=== PATIENT | male | born 1970 | race Caucasian/White ===

== ENCOUNTER 2018-02-20 06:23 | Inpatient (IN) | payer OTHER ==
--- NOTE | 2018-02-20 06:40 | EDM.PDOC ---
<Contreras Reed J - Last Filed: 02/20/18 06:38> ED HPI GENERAL MEDICAL PROBLEM - General Chief Complaint: Abdominal Pain Stated Complaint: PAIN ALL OVER Time Seen by Provider: 02/20/18 06:38 - History of Present Illness INITIAL COMMENTS - FREE TEXT/NARRATIVE: HISTORY AND PHYSICAL: History of present illness: Patient's 47-year-old white male presents with concern of lower abdominal pain this is suprapubic and right lower quadrant worse this a.m. that started last night. He denies fever chills nausea vomiting diarrhea or urinary symptoms Review of systems: As per history of present illness and below otherwise all systems reviewed and negative. Past medical history: As per history of present illness and as reviewed below otherwise noncontributory. Surgical history: As per history of present illness and as reviewed below otherwise noncontributory. Social history: No reported history of drug or alcohol abuse. Family history: As per history of present illness and as reviewed below otherwise noncontributory. Physical exam: HEENT: Atraumatic, normocephalic, pupils reactive, negative for conjunctival pallor or scleral icterus, mucous membranes moist, throat clear, neck supple, nontender, trachea midline. Lungs: Clear to auscultation, breath sounds equal bilaterally, chest nontender. Heart: S1S2, regular, negative for clicks, rubs, or JVD. Abdomen: Soft, nondistended, tender to right lower quadrant equivocal rebound mild guarding Negative for masses or hepatosplenomegaly. Negative for costovertebral tenderness. Pelvis: Stable nontender. Genitourinary: Deferred. Rectal: Deferred. Extremities: Atraumatic, negative for cords or calf pain. Neurovascular unremarkable. Neuro: Awake, alert, oriented. Cranial nerves II through XII unremarkable. Cerebellum unremarkable. Motor and sensory unremarkable throughout. Exam nonfocal. Diagnostics: CBC CMP UA CT abdomen and pelvis Therapeutics: Saline 1 L bolus Impression: #1 acute lower abdominal pain Definitive disposition and diagnosis as appropriate pending reevaluation and review of above. ED ROS GENERAL - Review of Systems Review Of Systems: ROS reveals no pertinent complaints other than HPI. ED EXAM, GENERAL - Physical Exam Exam: See Below (See dictation) Course - Vital Signs Last Recorded V/S: Last Vital Signs Temp 98.2 F 02/20/18 06:33 Pulse 119 H 02/20/18 06:33 Resp 12 02/20/18 06:33 BP 144/98 H 02/20/18 06:33 Pulse Ox 95 02/20/18 06:33 - Orders/Labs/Meds Orders: Active Orders 24 hr Category Date Time Status Abdomen Pelvis wo Cont [CT] Stat Exams 02/20/18 06:34 Taken UA W/MICROSCOPIC [URIN] Stat Lab 02/20/18 06:30 Ordered Levofloxacin/Dextrose 5%-Water [Levaquin in D5W 500 MG/ Med 02/20/18 07:41 Ordered 100 ML] 500 mg Premix Bag 1 bag IV ONETIME Morphine Med 02/20/18 07:41 Once 2 mg IVPUSH ONETIME ONE Sodium Chloride 0.9% [Normal Saline] 1,000 ml Med 02/20/18 07:45 Ordered IV STAT metroNIDAZOLE/Normal Saline [Flagyl 500 MG in NS 100 ML Med 02/20/18 07:41 Ordered ] 500 mg Premix Bag 1 bag IV ONETIME Medication Orders Levofloxacin/Dextrose 500 mg/ (Premix) 100 mls @ 100 mls/hr IV ONETIME ONE Stop: 02/20/18 08:40 Metronidazole 500 mg/ Premix 100 mls @ 100 mls/hr IV ONETIME ONE Stop: 02/20/18 08:40 Morphine Sulfate (Morphine) 2 mg IVPUSH ONETIME ONE Stop: 02/20/18 07:42 Labs: Laboratory Tests 02/20/18 02/20/18 02/20/18 Range/Units 06:30 06:40 06:40 WBC 18.96 H (4.0-11.0) K/uL RBC 5.18 (4.50-5.90) M/uL Hgb 17.2 H (13.0-17.0) g/dL Hct 48.0 (38.0-50.0) % MCV 92.7 (80.0-98.0) fL MCH 33.2 H (27.0-32.0) pg MCHC 35.8 (31.0-37.0) g/dL RDW Std Deviation 46.6 (28.0-62.0) fl RDW Coeff of Valentin 14 (11.0-15.0) % Plt Count 183 (150-400) K/uL MPV 8.60 (7.40-12.00) fL Neut % (Auto) 80.2 H (48.0-80.0) % Lymph % (Auto) 7.9 L (16.0-40.0) % [place] % (Auto) 11.7 (0.0-15.0) % Eos % (Auto) 0.1 (0.0-7.0) % Baso % (Auto) 0.1 (0.0-1.5) % Neut # (Auto) 15.2 H (1.4-5.7) K/uL Lymph # (Auto) 1.5 (0.6-2.4) K/uL [place] # (Auto) 2.2 H (0.0-0.8) K/uL Eos # (Auto) 0.0 (0.0-0.7) K/uL Baso # (Auto) 0.0 (0.0-0.1) K/uL Nucleated RBC % 0.0 /100WBC Nucleated RBCs # 0 K/uL Sodium 139 (136-148) mmol/L Potassium 3.9 (3.5-5.1) mmol/L Chloride 103 (98-107) mmol/L Carbon Dioxide 21.9 (21.0-32.0) mmol/L BUN 13 (7.0-18.0) mg/dL Creatinine 1.1 (0.8-1.3) mg/dL Est Cr Clr Drug Dosing 98.16 mL/min Estimated GFR (MDRD) > 60.0 ml/min Glucose 139 H (74-106) mg/dL Calcium 9.4 (8.5-10.1) mg/dL Total Bilirubin 1.0 (0.2-1.0) mg/dL AST 53 H (15-37) IU/L ALT 180 H (14-63) IU/L Alkaline Phosphatase 76 (46-116) U/L Total Protein 7.8 (6.4-8.2) g/dL Albumin 3.9 (3.4-5.0) g/dL Globulin 3.9 H (2.0-3.5) g/dL Albumin/Globulin Ratio 1.0 L (1.3-2.8) Urine Color YELLOW Urine Appearance CLEAR Urine pH 6.0 (5.0-8.0) Ur Specific [place] >= 1.030 (1.001-1.035) Urine Protein TRACE (NEGATIVE) mg/dL Urine Glucose (UA) NEGATIVE (NEGATIVE) mg/dL Urine Ketones NEGATIVE (NEGATIVE) mg/dL Urine Occult Blood NEGATIVE (NEGATIVE) Urine Nitrite NEGATIVE (NEGATIVE) Urine Bilirubin NEGATIVE (NEGATIVE) Urine Urobilinogen 0.2 (<2.0) EU/dL Ur Leukocyte Esterase NEGATIVE (NEGATIVE) Urine RBC 0-1 (0-2/HPF) Urine WBC RARE (0-5/HPF) Ur Epithelial Cells FEW (NONE-FEW) Urine Bacteria FEW (NEGATIVE) Urine Mucus LIGHT (NONE-MOD) Meds: Medications Generic Name Dose Route Start Last Admin Trade Name Freq PRN Reason Stop Dose Admin Levofloxacin/Dextrose 500 mg/ 100 mls @ 100 mls/hr 02/20/18 07:41 Premix IV 02/20/18 08:40 ONETIME ONE Metronidazole 500 mg/ Premix 100 mls @ 100 mls/hr 02/20/18 07:41 IV 02/20/18 08:40 ONETIME ONE Morphine Sulfate 2 mg 02/20/18 07:41 Morphine IVPUSH 02/20/18 07:42 ONETIME ONE Discontinued Medications Generic Name Dose Route Start Last Admin Trade Name Freq PRN Reason Stop Dose Admin Ketorolac Tromethamine 30 mg 02/20/18 07:15 02/20/18 07:23 Toradol IVPUSH 02/20/18 07:16 30 mg ONETIME ONE Administration Departure - Departure Disposition: Admitted As Inpatient 65 Clinical Impression: Diverticulitis - Discharge Information Referrals: PCP,None [Primary Care Provider] - Forms: ED Department Discharge - My Orders Last 24 Hours: My Active Orders 02/20/18 07:41 Levofloxacin/Dextrose 5%-Water [Levaquin in D5W 500 MG/100 ML] 500 mg Premix Bag 1 bag IV ONETIME Morphine 2 mg IVPUSH ONETIME ONE metroNIDAZOLE/Normal Saline [Flagyl 500 MG in NS 100 ML] 500 mg Premix Bag 1 bag IV ONETIME 02/20/18 07:45 Sodium Chloride 0.9% [Normal Saline] 1,000 ml IV STAT - Assessment/Plan Last 24 Hours: My Active Orders 02/20/18 07:41 Levofloxacin/Dextrose 5%-Water [Levaquin in D5W 500 MG/100 ML] 500 mg Premix Bag 1 bag IV ONETIME Morphine 2 mg IVPUSH ONETIME ONE metroNIDAZOLE/Normal Saline [Flagyl 500 MG in NS 100 ML] 500 mg Premix Bag 1 bag IV ONETIME 02/20/18 07:45 Sodium Chloride 0.9% [Normal Saline] 1,000 ml IV STAT <Vicente Marcelo - Last Filed: 02/20/18 07:46> ED HPI GENERAL MEDICAL PROBLEM - History of Present Illness INITIAL COMMENTS - FREE TEXT/NARRATIVE: I've seen and examined the patient agree with the above patient has had loose stools routinely HEENT grossly within normal limits Chest clear CV regular Abdomen soft nondis tender in right lower quadrant with rebound rebound he is also tender in the left lower quadrant similar rebound no masses or hepatosplenomegaly negative for costovertebral tenderness Pelvis stable nontender Genitourinary deferred Rectal deferred Extremities atraumatic negative for cords or calf pain neurovascular unremarkable Neuro a and O 3 cranial nerves II through XII grossly intact cerebellum unremarkable motor and sensory unremarkable throughout exam nonfocal Assessment Acute diverticulitis Plan Cipro Flagyl Admission Departure - Departure Time of Disposition: 07:46 Condition: Fair
[2018-02-20] MEDS ORDERED: Ketorolac 30 MG/ML SDV IVPUSH ONE (07:15)
[2018-02-20 07:18] LABS: CHLORIDE,CL 103 mmol/L (98-107); SODIUM,NA 139 mmol/L (136-148)
[2018-02-20] MEDS ORDERED: Morphine 4 MG/ML Syringe IVPUSH ONE (07:41)
[2018-02-20] MEDS ORDERED: metroNIDAZOLE/Normal Saline 500 MG in Premix Bag 1 BAG IV ONE (07:41)
[2018-02-20] MEDS ORDERED: Levofloxacin/Dextrose 5%-Water 500 MG in Premix Bag 1 BAG IV ONE (07:41)
[2018-02-20] MEDS ORDERED: Sodium Chloride 0.9% 1,000 ML IV SCH ×2 (07:45→08:00)
[2018-02-20] MEDS ORDERED: Ciprofloxacin in D5W 400 MG in Premix Bag 1 BAG IV SCH ×2 (08:00)
[2018-02-20] MEDS ORDERED: Ondansetron 4 MG/2 ML SDV IVPUSH PRN (08:20)
--- NOTE | 2018-02-20 08:24 | PCM.HP ---
H&P History of Present Illness - General Date of Service: 02/20/18 Admit Problem/Dx: Admission Diagnosis/Problem Admission Diagnosis/Problem Diverticulitis Source of Information: Patient History Limitations: Reports: No Limitations - History of Present Illness Initial Comments - Free Text/Narative: This 47 year old male, with little significant pmh presented to the ED this morning with 24 hours of severe abdominal pain. He reports all day yesterday he dealt with 5-6/10 cramping, sharp shooting and stabbing pain to midline and RLQ abdominal pain. He reports diarrhea, but no john blood or black tarry stools. He has had a poor appetite and ate only half a brat yesterday and drinking very little. He denies fevers, chills, neck pain, chest pain, SOB, palpitations or urinary troubles. He has never had this pain before. No history of IBD/IBS and no family history of this. No abdominal surgeries. He reports kidney stones and tonsillectomy when he was a child. He reports smoking 2 ppd for many years and he drinks a 12 pack of beer daily. Reports being sober at one time going to AA and going through DTs, never had seizures. Denies recreational drugs. In the ED leuckoytosis of 18,960 with hgb 17.2. Glucose slightly elevated at 139 , AST 53, ALT 180. UA negative. CT abdomen/pelvis revealed acute sigmoid diverticulitis without complication, no john perforation or abscess noted. Severe hepatic steatosis also noted. He was treated with Toradol, Morphone IVFs as well as Ciprofloxacin and Flagyl. He will be admitted inpatient for acute sigmoid diverticulitis. RLQ abd Pain Score (Numeric/FACES): 10 - Related Data Allergies/Adverse Reactions: Allergies Allergy/AdvReac Type Severity Reaction Status Date / Time No Known Allergies Allergy Verified 02/20/18 06:40 Home Medications: Home Meds . [No Known Home Meds] 02/20/18 [History] Past Medical History - Past Health History Medical/Surgical History: Denies Medical/Surgical History Cardiovascular History: Reports: None. Denies: Afib, Blood Clots/VTE/DVT, CAD, High Cholesterol, Hypertension Respiratory History: Reports: None. Denies: COPD, PE, Sleep Apnea Gastrointestinal History: Reports: None. Denies: GERD, GI Bleed, Inflammatory Bowel Disease, Irritable Bowel Syndrome Neurological History: Reports: None. Denies: CVA, TIA Psychiatric History: Reports: Addiction (alcohol) Endocrine/Metabolic History: Reports: Obesity/BMI 30+. Denies: Diabetes, Type II Hematologic History: Reports: None - Infectious Disease History Infectious Disease History: Reports: Chicken Pox - Past Surgical History HEENT Surgical History: Reports: Adenoidectomy, Tonsillectomy Social & Family History - Tobacco Use Smoking Status *Q: Current Every Day Smoker Years of Tobacco use: 25 Packs/Tins Daily: 2 - Caffeine Use Caffeine Use: Reports: Coffee - Alcohol Use Alcohol Use History: Yes Days Per Week of Alcohol Use: 7 Number of Drinks Per Day: 12 Total Drinks Per Week: 84 Alcohol Use Frequency: Daily - Recreational Drug Use Recreational Drug Use: No - Living Situation & Occupation Occupation: Employed H&P Review of Systems - Review of Systems: Review Of Systems: See Below General: Reports: Malaise, Decreased Appetite. Denies: Fever, Chills HEENT: Reports: No Symptoms. Denies: Headaches, Sinus Congestion, Sore Throat Pulmonary: Reports: No Symptoms. Denies: Shortness of Breath, Cough, Sputum Cardiovascular: Reports: No Symptoms. Denies: Chest Pain, Edema Gastrointestinal: Reports: Abdominal Pain (RLQ and lower midline), Diarrhea, Decreased Appetite. Denies: Black Stool, Bloody Stool, Hematemesis, Melena, Nausea, Vomiting Genitourinary: Reports: No Symptoms. Denies: Dysuria, Frequency, Burning, Pain Musculoskeletal: Reports: No Symptoms. Denies: Neck Pain Skin: Reports: No Symptoms Psychiatric: Reports: No Symptoms Neurological: Reports: No Symptoms Hematologic/Lymphatic: Reports: No Symptoms Immunologic: Reports: No Symptoms Exam - Exam Exam: See Below - Vital Signs Vital Signs: Last Vital Signs Temp 98.2 F 02/20/18 06:33 Pulse 110 H 02/20/18 08:07 Resp 18 02/20/18 08:07 BP 144/97 H 02/20/18 08:07 Pulse Ox 95 02/20/18 08:07 Weight: 128 kg - Exam General: Alert, Oriented, Cooperative. No: Mild Distress HEENT: PERRLA, Hearing Intact, Mucosa Moist & [place], Nares Patent, Normal Nasal Septum, Posterior Pharynx Clear, Conjunctiva Clear, EOMI, EACs Clear, TMs Clear Neck: Supple, Trachea Midline, 2 Lungs: Clear to Auscultation, Normal Respiratory Effort Cardiovascular: Regular Rate, Regular Rhythm GI/Abdominal Exam: Soft, No Organomegaly, No Distention, No Mass, Tender (RLQ and low midline.). No: Normal Bowel Sounds (hypoactive) Back Exam: Normal Inspection, Full Range of Motion, NT Extremities: Normal Inspection, Normal Range of Motion, Non-Tender, No Pedal Edema, Normal Capillary Refill Neurological: Cranial Nerves Intact Neuro Extensive - Mental Status: Alert, Oriented x3, Normal Mood/Affect, Normal Cognition Neuro Extensive - Motor, Sensory, Reflexes: CN II-XII Intact, Normal Gait, Normal Reflexes Psychiatric: Alert, Normal Affect, Normal Mood. No: Anxious - Patient Data Lab Results Last 24 hrs: Laboratory Results - last 24 hr 02/20/18 02/20/18 02/20/18 Range/Units 06:30 06:40 06:40 WBC 18.96 H (4.0-11.0) K/uL RBC 5.18 (4.50-5.90) M/uL Hgb 17.2 H (13.0-17.0) g/dL Hct 48.0 (38.0-50.0) % MCV 92.7 (80.0-98.0) fL MCH 33.2 H (27.0-32.0) pg MCHC 35.8 (31.0-37.0) g/dL RDW Std Deviation 46.6 (28.0-62.0) fl RDW Coeff of Valentin 14 (11.0-15.0) % Plt Count 183 (150-400) K/uL MPV 8.60 (7.40-12.00) fL Neut % (Auto) 80.2 H (48.0-80.0) % Lymph % (Auto) 7.9 L (16.0-40.0) % [place] % (Auto) 11.7 (0.0-15.0) % Eos % (Auto) 0.1 (0.0-7.0) % Baso % (Auto) 0.1 (0.0-1.5) % Neut # (Auto) 15.2 H (1.4-5.7) K/uL Lymph # (Auto) 1.5 (0.6-2.4) K/uL [place] # (Auto) 2.2 H (0.0-0.8) K/uL Eos # (Auto) 0.0 (0.0-0.7) K/uL Baso # (Auto) 0.0 (0.0-0.1) K/uL Nucleated RBC % 0.0 /100WBC Nucleated RBCs # 0 K/uL Sodium 139 (136-148) mmol/L Potassium 3.9 (3.5-5.1) mmol/L Chloride 103 (98-107) mmol/L Carbon Dioxide 21.9 (21.0-32.0) mmol/L BUN 13 (7.0-18.0) mg/dL Creatinine 1.1 (0.8-1.3) mg/dL Est Cr Clr Drug Dosing 98.16 mL/min Estimated GFR (MDRD) > 60.0 ml/min Glucose 139 H (74-106) mg/dL Calcium 9.4 (8.5-10.1) mg/dL Total Bilirubin 1.0 (0.2-1.0) mg/dL AST 53 H (15-37) IU/L ALT 180 H (14-63) IU/L Alkaline Phosphatase 76 (46-116) U/L Total Protein 7.8 (6.4-8.2) g/dL Albumin 3.9 (3.4-5.0) g/dL Globulin 3.9 H (2.0-3.5) g/dL Albumin/Globulin Ratio 1.0 L (1.3-2.8) Urine Color YELLOW Urine Appearance CLEAR Urine pH 6.0 (5.0-8.0) Ur Specific [place] >= 1.030 (1.001-1.035) Urine Protein TRACE (NEGATIVE) mg/dL Urine Glucose (UA) NEGATIVE (NEGATIVE) mg/dL Urine Ketones NEGATIVE (NEGATIVE) mg/dL Urine Occult Blood NEGATIVE (NEGATIVE) Urine Nitrite NEGATIVE (NEGATIVE) Urine Bilirubin NEGATIVE (NEGATIVE) Urine Urobilinogen 0.2 (<2.0) EU/dL Ur Leukocyte Esterase NEGATIVE (NEGATIVE) Urine RBC 0-1 (0-2/HPF) Urine WBC RARE (0-5/HPF) Ur Epithelial Cells FEW (NONE-FEW) Urine Bacteria FEW (NEGATIVE) Urine Mucus LIGHT (NONE-MOD) Result Diagrams: 02/20/18 06:40 02/20/18 06:40 *Q Meaningful Use (ADM) - VTE Risk Assess *Q Each Risk Factor Represents 1 Point: Age 41 - 59 years Total Score 1 Point Risk Factors: 1 Each Risk Factor Represents 2 Points: None Total Score 2 Point Risk Factors: 0 Each Risk Factor Represents 3 Points: None Total Score 3 Point Risk Factors: 0 Each Risk Factor Represents 5 Points: None Total Score 5 Point Risk Factors: 0 Venous Thromboembolism Risk Factor Score *Q: 1 - Problem List (1) Sigmoid diverticulitis SNOMED Code(s): 555755056 ICD Code: K57.32 - DVTRCLI OF LG INT W/O PERFORATION OR ABSCESS W/O BLEEDING Status: Acute Current Visit: Yes (2) History of tobacco abuse SNOMED Code(s): 5828911961473, 2716631739265 ICD Code: Z87.891 - PERSONAL HISTORY OF NICOTINE DEPENDENCE Status: Chronic Current Visit: Yes (3) History of alcohol use SNOMED Code(s): 894165474 ICD Code: Z87.898 - PERSONAL HISTORY OF OTHER SPECIFIED CONDITIONS Status: Chronic Current Visit: Yes Problem List Initiated/Reviewed/Updated: Yes Orders Last 24hrs: Active Orders 24 hr Category Date Time Status Admission Status [Patient Status] [ADT] Stat ADT 02/20/18 07:47 Active Intake and Output [RC] QSHIFT Care 02/20/18 08:19 Ordered Oxygen Therapy [RC] PRN Care 02/20/18 08:19 Ordered Up With Assistance [RC] ASDIRECTED Care 02/20/18 08:19 Ordered VTE/DVT Education [RC] PER UNIT ROUTINE Care 02/20/18 08:19 Ordered Vital Signs [RC] Q4H Care 02/20/18 08:19 Ordered Nothing Per Oral Diet [DIET] Diet 02/20/18 Lunch Ordered Abdomen Pelvis wo Cont [CT] Stat Exams 02/20/18 06:34 Taken CBC WITH AUTO DIFF [HEME] AM Lab 02/21/18 05:11 Ordered CBC WITH AUTO DIFF [HEME] AM Lab 02/22/18 05:11 Ordered CBC WITH AUTO DIFF [HEME] AM Lab 02/23/18 05:11 Ordered COMPREHENSIVE METABOLIC PN,CMP [CHEM] AM Lab 02/21/18 05:11 Ordered COMPREHENSIVE METABOLIC PN,CMP [CHEM] AM Lab 02/22/18 05:11 Ordered COMPREHENSIVE METABOLIC PN,CMP [CHEM] AM Lab 02/23/18 05:11 Ordered MAGNESIUM [CHEM] AM Lab 02/21/18 05:11 Ordered MAGNESIUM [CHEM] AM Lab 02/22/18 05:11 Ordered MAGNESIUM [CHEM] AM Lab 02/23/18 05:11 Ordered UA W/MICROSCOPIC [URIN] Stat Lab 02/20/18 06:30 Ordered Ciprofloxacin in D5W [Cipro in D5W 400 MG/200 ML] 400 Med 02/20/18 08:00 Active mg Premix Bag 1 bag IV Q12H Ciprofloxacin in D5W [Cipro in D5W 400 MG/200 ML] 400 Med 02/20/18 20:00 Ordered mg Premix Bag 1 bag IV Q12H Enoxaparin [Lovenox] Med 02/20/18 08:30 Ordered 40 mg SUBCUT Q24H Lactated Ringers [Ringers, Lactated] 1,000 ml Med 02/20/18 08:30 Ordered IV ASDIRECTED Morphine Med 02/20/18 08:19 Ordered 3 mg IVPUSH Q2H PRN Ondansetron [Zofran] Med 02/20/18 08:20 Ordered 4 mg IVPUSH Q4H PRN Sodium Chloride 0.9% [Normal Saline] 1,000 ml Med 02/20/18 07:45 Active IV STAT Sodium Chloride 0.9% [Normal Saline] 1,000 ml Med 02/20/18 08:00 Active IV STAT metroNIDAZOLE/Normal Saline [Flagyl 500 MG in NS 100 ML Med 02/20/18 07:41 Active ] 500 mg Premix Bag 1 bag IV ONETIME metroNIDAZOLE/Normal Saline [Flagyl 500 MG in NS 100 ML Med 02/20/18 14:00 Ordered ] 500 mg Premix Bag 1 bag IV QID Resuscitation Status Routine Resus Stat 02/20/18 08:19 Ordered Medication Orders Enoxaparin Sodium (Lovenox) 40 mg SUBCUT Q24H NEY Metronidazole 500 mg/ Premix 100 mls @ 100 mls/hr IV ONETIME ONE Stop: 02/20/18 08:40 Last Admin: 02/20/18 07:55 Dose: Sodium Chloride (Normal Saline) 1,000 mls @ 125 mls/hr IV STAT NEY Last Admin: 02/20/18 08:03 Dose: 125 mls/hr Sodium Chloride (Normal Saline) 1,000 mls @ 125 mls/hr IV STAT NEY Ciprofloxacin/Dextrose 400 mg/ (Premix) 200 mls @ 200 mls/hr IV Q12H [facility] Last Admin: 02/20/18 08:04 Dose: 200 mls/hr Ciprofloxacin/Dextrose 400 mg/ (Premix) 200 mls @ 200 mls/hr IV Q12H NEY Lactated Ringer's (Ringers, Lactated) 1,000 mls @ 150 mls/hr IV ASDIRECTED [facility] Metronidazole 500 mg/ Premix 100 mls @ 100 mls/hr IV QID NEY Morphine Sulfate (Morphine) 3 mg IVPUSH Q2H PRN PRN Reason: Pain (severe 7-10) Ondansetron HCl (Zofran) 4 mg IVPUSH Q4H PRN PRN Reason: Nausea Assessment/Plan Comment:: This 47 year old male admitted with acute sigmoid diverticulitis 1. Acute sigmoid diverticulitis: NPO, ice chips ok. Analgesia and anti-emetics PRN. IVFs, LR 150. No signs of perforation or abscess. Continue Ciprofloxacin and Flagyl IV. Obtain stool studies due to diarrhea. Will need to arrange outpatient follow up for colonoscopy. Will monitor labwork daily. 2. Alcohol use: Daily use has had withdrawls in past. Will place on CIWAA protocol, patient is aware. Ativan PRN. Thiamine and folic acid supplementation daily. No completely certain is ready to stop drinking, but is willing to cut back. Notified on CT findings of liver steatosis and our recommendation he stop drinking. 3. Tobacco use: Will place Nicotine patch due to 2 ppd smoker. Encouraged that he is not allowed to be smoking during admission. VTE prophylaxis: SCDs and ambulation. Dispo: 2-3 days pending improvement.
[2018-02-20] MEDS ORDERED: Enoxaparin 40 MG/0.4 ML Syringe SUBCUT SCH (08:30)
[2018-02-20] MEDS ORDERED: LORazepam 2 MG/ML SDV IVPUSH PRN (09:08)
[2018-02-20] MEDS ORDERED: Thiamine 200 MG/2 ML MDV IV SCH (09:15)
[2018-02-20] MEDS: Folic Acid 50 MG/10 ML MDV SUBCUT SCH (09:24)
[2018-02-20] MEDS: Nicotine 21 MG/24 Hr Patch TRDERM SCH (09:26)
[2018-02-20] MEDS: Morphine 4 MG/ML Syringe IVPUSH PRN ×4 (10:15→17:40)
[2018-02-20] MEDS: Thiamine 100 MG in Sodium Chloride 0.9% 50 ML IV SCH (10:19)
[2018-02-20] MEDS: metroNIDAZOLE/Normal Saline 500 MG in Premix Bag 1 BAG IV SCH ×4 (11:11→23:57)
[2018-02-20] MEDS ORDERED: metroNIDAZOLE/Normal Saline 500 MG in Premix Bag 1 BAG IV SCH (14:00)
--- NOTE | 2018-02-20 17:11 | CT ---
EXAM DATE: 02/20/18 PATIENT'S AGE: 47 Patient: DINORA HILL Facility: [place], [place] Site . Site : 1970 Study: CT Abdomen/Pelvis W/O [id number]/30/2018 7:02:52 AM Ordering Physician: Doctor Wharton Final Report: INDICATION: Lower abdominal pain TECHNIQUE: CT abdomen and pelvis without contrast. COMPARISON: None. FINDINGS: Lower chest: Unremarkable. Liver: There is diffuse fatty infiltration. No focal lesion. Gallbladder and bile ducts: No stones or inflammation. No biliary dilatation. Pancreas: Unremarkable. No mass or inflammation. Spleen: Normal in size. No masses. Adrenal glands: There is mild enlargement of the adrenal glands. Kidneys: Normal in size. No masses, stones, or hydronephrosis. GI tract: There is mild diverticulosis and acute inflammation amongst diverticuli in the sigmoid colon. No sign of john perforation or abscess. Remainder of the GI tract and appendix are normal. Vasculature: Unremarkable. Lymph nodes: No lymphadenopathy. Abdominal wall/Omentum/Peritoneum: Unremarkable. No sign of mass or infiltration. No free air or significant free fluid. Pelvis: Unremarkable. No pelvic masses. Bones: Unremarkable for age. IMPRESSION: 1. Acute sigmoid diverticulitis without complication is favored over colitis. 2. Severe hepatic steatosis. Please note that all CT scans at this facility use dose modulation, iterative reconstruction, and/or weight-based dosing when appropriate to reduce radiation dose to as low as reasonably achievable. Dictated by Felipe Cabral MD @ Feb 20 2018 7:19AM (Electronic Signature) Report Signed by Proxy. [email or web address]
[2018-02-20] MEDS: Lactated Ringers 1,000 ML IV SCH (17:40)
[2018-02-20] MEDS: HYDROmorphone 2 MG/ML SDV IVPUSH PRN (19:47)
[2018-02-20] MEDS: Ciprofloxacin in D5W 400 MG in Premix Bag 1 BAG IV SCH ×2 (20:16)
[2018-02-21] MEDS: Lactated Ringers 1,000 ML IV SCH (03:35)
[2018-02-21] MEDS: HYDROmorphone 2 MG/ML SDV IVPUSH PRN (03:38)
[2018-02-21] MEDS: metroNIDAZOLE/Normal Saline 500 MG in Premix Bag 1 BAG IV SCH ×2 (06:00→12:33)
[2018-02-21 06:55] LABS: CHLORIDE,CL 105 mmol/L (98-107); SODIUM,NA 139 mmol/L (136-148)
--- NOTE | 2018-02-21 07:50 | PCM.PN ---
- General Info Date of Service: 02/21/18 Admission Dx/Problem (Free Text): Admission Diagnosis/Problem Admission Diagnosis/Problem Diverticulitis - Patient Data Vitals - Most Recent: Last Vital Signs Temp 98.5 F 02/21/18 04:00 Pulse 82 02/21/18 04:00 Resp 19 02/21/18 04:00 BP 126/79 02/21/18 04:00 Pulse Ox 97 02/21/18 04:00 Weight - Most Recent: 128 kg I&O - Last 24 Hours: Intake & Output 02/20/18 02/21/18 02/21/18 22:59 06:59 14:59 Intake Total 1144 30 Output Total 400 720 Balance 744 -690 Lab Results Last 24 Hours: Laboratory Results - last 24 hr 02/21/18 02/21/18 Range/Units 06:00 06:00 WBC 11.52 H (4.0-11.0) K/uL RBC 4.50 (4.50-5.90) M/uL Hgb 14.5 (13.0-17.0) g/dL Hct 42.4 (38.0-50.0) % MCV 94.2 (80.0-98.0) fL MCH 32.2 H (27.0-32.0) pg MCHC 34.2 (31.0-37.0) g/dL RDW Std Deviation 48.0 (28.0-62.0) fl RDW Coeff of Valentin 14 (11.0-15.0) % Plt Count 160 (150-400) K/uL MPV 8.80 (7.40-12.00) fL Neut % (Auto) 77.0 (48.0-80.0) % Lymph % (Auto) 16.0 (16.0-40.0) % [place] % (Auto) 6.6 (0.0-15.0) % Eos % (Auto) 0.3 (0.0-7.0) % Baso % (Auto) 0.1 (0.0-1.5) % Neut # (Auto) 8.9 H (1.4-5.7) K/uL Lymph # (Auto) 1.8 (0.6-2.4) K/uL [place] # (Auto) 0.8 (0.0-0.8) K/uL Eos # (Auto) 0.0 (0.0-0.7) K/uL Baso # (Auto) 0.0 (0.0-0.1) K/uL Nucleated RBC % 0.0 /100WBC Nucleated RBCs # 0 K/uL Sodium 139 (136-148) mmol/L Potassium 3.8 (3.5-5.1) mmol/L Chloride 105 (98-107) mmol/L Carbon Dioxide 23.4 (21.0-32.0) mmol/L BUN 15 (7.0-18.0) mg/dL Creatinine 0.9 (0.8-1.3) mg/dL Est Cr Clr Drug Dosing 119.97 mL/min Estimated GFR (MDRD) > 60.0 ml/min Glucose 104 (74-106) mg/dL Calcium 8.8 (8.5-10.1) mg/dL Magnesium 2.2 H (1.5-2.0) mg/dL Total Bilirubin 0.9 (0.2-1.0) mg/dL AST 46 H (15-37) IU/L ALT 137 H (14-63) IU/L Alkaline Phosphatase 61 (46-116) U/L Total Protein 6.7 (6.4-8.2) g/dL Albumin 3.0 L (3.4-5.0) g/dL Globulin 3.7 H (2.0-3.5) g/dL Albumin/Globulin Ratio 0.8 L (1.3-2.8) Med Orders - Current: Current Medications Folic Acid (Folic Acid) 1 mg SUBCUT DAILY [facility] Last Admin: 02/20/18 09:24 Dose: 1 mg Hydromorphone HCl (Dilaudid) 2 mg IVPUSH Q4H PRN PRN Reason: Abdominal Pain Last Admin: 02/21/18 03:38 Dose: 2 mg Ciprofloxacin/Dextrose 400 mg/ (Premix) 200 mls @ 200 mls/hr IV Q12H [facility] Last Admin: 02/20/18 20:16 Dose: 200 mls/hr Lactated Ringer's (Ringers, Lactated) 1,000 mls @ 150 mls/hr IV ASDIRECTED [facility] Last Admin: 02/21/18 03:35 Dose: 150 mls/hr Thiamine HCl 100 mg/ Sodium (Chloride) 51 mls @ 102 mls/hr IV DAILY [facility] Last Admin: 02/20/18 10:19 Dose: 102 mls/hr Metronidazole 500 mg/ Premix 100 mls @ 100 mls/hr IV QID [facility] Last Admin: 02/21/18 06:00 Dose: 100 mls/hr Lorazepam (Ativan) 0 mg IVPUSH Q4H PRN; Protocol PRN Reason: CIWAA Nicotine (Habitrol) 21 mg TRDERM DAILY [facility] Last Admin: 02/20/18 09:26 Dose: 21 mg Ondansetron HCl (Zofran) 4 mg IVPUSH Q4H PRN PRN Reason: Nausea Discontinued Medications Enoxaparin Sodium (Lovenox) 40 mg SUBCUT Q24H [facility] Last Admin: 02/20/18 09:30 Dose: Not Given Levofloxacin/Dextrose 500 mg/ (Premix) 100 mls @ 100 mls/hr IV ONETIME ONE Stop: 02/20/18 08:40 Last Admin: 02/20/18 07:50 Dose: Not Given Metronidazole 500 mg/ Premix 100 mls @ 100 mls/hr IV ONETIME ONE Stop: 02/20/18 08:40 Last Admin: 02/20/18 07:55 Dose: Not Given Sodium Chloride (Normal Saline) 1,000 mls @ 125 mls/hr IV STAT [facility] Last Admin: 02/20/18 08:03 Dose: 125 mls/hr Sodium Chloride (Normal Saline) 1,000 mls @ 125 mls/hr IV STAT [facility] Ciprofloxacin/Dextrose 400 mg/ (Premix) 200 mls @ 200 mls/hr IV Q12H [facility] Last Admin: 02/20/18 08:04 Dose: 200 mls/hr Metronidazole 500 mg/ Premix 100 mls @ 100 mls/hr IV QID [facility] Metronidazole 500 mg/ Premix 100 mls @ 100 mls/hr IV QID [facility] Last Admin: 02/20/18 12:33 Dose: Not Given Ketorolac Tromethamine (Toradol) 30 mg IVPUSH ONETIME ONE Stop: 02/20/18 07:16 Last Admin: 02/20/18 07:23 Dose: 30 mg Morphine Sulfate (Morphine) 2 mg IVPUSH ONETIME ONE Stop: 02/20/18 07:42 Last Admin: 02/20/18 08:03 Dose: 2 mg Morphine Sulfate (Morphine) 3 mg IVPUSH Q2H PRN PRN Reason: Pain (severe 7-10) Last Admin: 02/20/18 17:40 Dose: 3 mg - Problem List & Annotations (1) Sigmoid diverticulitis SNOMED Code(s): 893321748 Code(s): K57.32 - DVTRCLI OF LG INT W/O PERFORATION OR ABSCESS W/O BLEEDING Status: Acute Current Visit: Yes (2) History of tobacco abuse SNOMED Code(s): 2642209633153, 5771520997202 Code(s): Z87.891 - PERSONAL HISTORY OF NICOTINE DEPENDENCE Status: Chronic Current Visit: Yes (3) History of alcohol use SNOMED Code(s): 040683454 Code(s): Z87.898 - PERSONAL HISTORY OF OTHER SPECIFIED CONDITIONS Status: Chronic Current Visit: Yes - My Orders Last 24 Hours: My Active Orders 02/20/18 08:19 Intake and Output [RC] Q12H Up With Assistance [RC] ASDIRECTED VTE/DVT Education [RC] PER UNIT ROUTINE Vital Signs [RC] Q4H Resuscitation Status Routine 02/20/18 08:20 Ondansetron [Zofran] 4 mg IVPUSH Q4H PRN 02/20/18 08:30 Lactated Ringers [Ringers, Lactated] 1,000 ml IV ASDIRECTED 02/20/18 09:08 LORazepam [Ativan] See Protocol IVPUSH Q4H PRN 02/20/18 09:15 Folic Acid 1 mg SUBCUT DAILY Nicotine [Habitrol] 21 mg TRDERM DAILY 02/20/18 09:23 SCD [Sequential Compression Device] [OM.PC] Routine 02/20/18 09:30 Thiamine [Vitamin B-1] 100 mg Sodium Chloride 0.9% [Normal Saline] 50 ml IV DAILY 02/20/18 18:00 metroNIDAZOLE/Normal Saline [Flagyl 500 MG in NS 100 ML] 500 mg Premix Bag 1 bag IV QID 02/20/18 20:00 Ciprofloxacin in D5W [Cipro in D5W 400 MG/200 ML] 400 mg Premix Bag 1 bag IV Q12H 02/20/18 Lunch Nothing Per Oral Diet [DIET] 02/22/18 05:11 CBC WITH AUTO DIFF [HEME] AM COMPREHENSIVE METABOLIC PN,CMP [CHEM] AM MAGNESIUM [CHEM] AM 02/23/18 05:11 CBC WITH AUTO DIFF [HEME] AM COMPREHENSIVE METABOLIC PN,CMP [CHEM] AM MAGNESIUM [CHEM] AM - Plan Plan:: This 47 year old male admitted with acute sigmoid diverticulitis 1. Acute sigmoid diverticulitis: NPO, ice chips ok. Analgesia and anti-emetics PRN. IVFs, LR 150. No signs of perforation or abscess. Continue Ciprofloxacin and Flagyl IV. Obtain stool studies due to diarrhea. Will need to arrange outpatient follow up for colonoscopy. Will monitor labwork daily. 2. Alcohol use: Daily use has had withdrawls in past. Will place on CIWAA protocol, patient is aware. Ativan PRN. Thiamine and folic acid supplementation daily. No completely certain is ready to stop drinking, but is willing to cut back. Notified on CT findings of liver steatosis and our recommendation he stop drinking. 3. Tobacco use: Will place Nicotine patch due to 2 ppd smoker. Encouraged that he is not allowed to be smoking during admission. VTE prophylaxis: SCDs and ambulation. Dispo: 2-3 days pending improvement.
[2018-02-21] MEDS: Nicotine 21 MG/24 Hr Patch TRDERM SCH (08:12)
[2018-02-21] MEDS: Ciprofloxacin in D5W 400 MG in Premix Bag 1 BAG IV SCH ×2 (08:12)
[2018-02-21] MEDS: Folic Acid 50 MG/10 ML MDV SUBCUT SCH (08:13)
[2018-02-21] MEDS: Thiamine 100 MG in Sodium Chloride 0.9% 50 ML IV SCH (09:33)
--- NOTE | 2018-02-21 11:31 | PCM.DCSUM1 ---
Discharge Summary - Hospital Course Brief History: This 47 year old male, with little significant pmh presented to the ED this morning with 24 hours of severe abdominal pain. He reports all day yesterday he dealt with 5-6/10 cramping, sharp shooting and stabbing pain to midline and RLQ abdominal pain. He reports diarrhea, but no john blood or black tarry stools. He has had a poor appetite and ate only half a brat yesterday and drinking very little. He denies fevers, chills, neck pain, chest pain, SOB, palpitations or urinary troubles. He has never had this pain before. No history of IBD/IBS and no family history of this. No abdominal surgeries. He reports kidney stones and tonsillectomy when he was a child. He reports smoking 2 ppd for many years and he drinks a 12 pack of beer daily. Reports being sober at one time going to AA and going through DTs, never had seizures. Denies recreational drugs. In the ED leuckoytosis of 18,960 with hgb 17.2. Glucose slightly elevated at 139, AST 53, ALT 180. UA negative. CT abdomen/pelvis revealed acute sigmoid diverticulitis without complication, no john perforation or abscess noted. Severe hepatic steatosis also noted. He was treated with Toradol, Morphine IVFs as well as Ciprofloxacin and Flagyl. He will be admitted inpatient for acute sigmoid diverticulitis. - Discharge Data Discharge Date: 02/21/18 Discharge Disposition: Home, Self-Care 01 Condition: Fair - Discharge Diagnosis/Problem(s) (1) Sigmoid diverticulitis SNOMED Code(s): 998530088 ICD Code: K57.32 - DVTRCLI OF LG INT W/O PERFORATION OR ABSCESS W/O BLEEDING Status: Acute (2) History of tobacco abuse SNOMED Code(s): 4952068897591, 7547932807426 ICD Code: Z87.891 - PERSONAL HISTORY OF NICOTINE DEPENDENCE Status: Chronic (3) History of alcohol use SNOMED Code(s): 661441809 ICD Code: Z87.898 - PERSONAL HISTORY OF OTHER SPECIFIED CONDITIONS Status: Chronic - Patient Instructions Diet: Clear Liquid Diet, Full Liquid Diet (Today then), GI Soft/Low Residue/Low Fiber Diet, Other: over next couple days slowly advance to GI soft low fiber Activity: As Tolerated, Rest and Relax Today Showering/Bathing: May Shower Other/Special Instructions: obstain from alcohol. - Discharge Plan Prescriptions/Med Rec: Ciprofloxacin HCl [Cipro] 500 mg PO BID #26 tablet metroNIDAZOLE [Flagyl] 500 mg PO Q8H #39 tab Home Medications: Home Meds Ciprofloxacin HCl [Cipro] 500 mg PO BID #26 tablet 02/21/18 [Rx] metroNIDAZOLE [Flagyl] 500 mg PO Q8H #39 tab 02/21/18 [Rx] Patient Handouts: Diverticulitis, [id number], Ciprofloxacin tablets, Metronidazole tablets or capsules Referrals: Yuki Meredith PA [Physician Floor Plan Adjuster] - 02/28/18 3:15 pm Esvin Rose MD [Physician] - 03/06/18 10:45 am - Discharge Summary/Plan Comment DC Time >30 min.: No Discharge Summary/Plan Comment: Discharge Diagnoses: Acute sigmoid diverticulitis Alcohol abuse Tobacco abuse Hepatic steatosis was admitted and treated for acte diverticulitis as seen on CT of abdomen/ pelvis. He was kept NPO, with IVFs, Flagyl and Ciprofloxacin. He was given Dilaudid for pain PRN. This morning he reports pain is much improved and is asking for CL diet. He tolerated CL diet well and on second rouds with Dr March he is asking for discharge home. He made it clear he does not want to detox from alcohol and is starting to feel anxious and agitated without alcohol. He reports he will cut down on alcohol but he is not comitted to be sober. Significant other at bedside. He will be discharged home today with Cipro 500 mg BID for 13 more days along with Flagyl 500 mg Q8hr for 13 days. He is to abstain from alcohol, especially when taking Flagyl given its effects with alcohol, which he verbalized understanding. He also is to keep CL to FL diet for next couple days and slowly advance to GI soft low fiber diet for a week. Then start regular diet. he will be set up with PCP to see in 1 week and with general surgeon for colonoscopy to follow up on new diagnosis of diverticulitis and diverticulosis. He is to return to ED or clinic if concerns should arise. - General Info Date of Service: 02/21/18 Admission Dx/Problem (Free Text: Sigmoid diverticulitis Subjective Update: Sitting up in bed, anxious agitated. Requesting to have diet and to be discharged home. Gaye, significant other at bedside. No chest pain, SOB or palpitations. Abdominal pain has improved and only has mild tenderness to RLQ and lower abdomen. Passing flatus, no stools. Functional Status: Reports: Pain Controlled, Tolerating Diet, Ambulating, Urinating - Review of Systems General: Reports: No Symptoms HEENT: Reports: No Symptoms. Denies: Headaches, Sore Throat, Visual Changes Pulmonary: Reports: No Symptoms. Denies: Shortness of Breath, Cough, Sputum Cardiovascular: Reports: No Symptoms. Denies: Chest Pain, Edema Gastrointestinal: Reports: Abdominal Pain (scant tenderness to RLQ), Flatus. Denies: Nausea, Vomiting Genitourinary: Reports: No Symptoms. Denies: Dysuria, Frequency Musculoskeletal: Reports: No Symptoms Skin: Reports: No Symptoms Neurological: Reports: No Symptoms Psychiatric: Reports: Anxiety, Agitation - Patient Data Vitals - Most Recent: Last Vital Signs Temp 96.7 F 02/21/18 08:00 Pulse 84 02/21/18 08:00 Resp 20 02/21/18 08:00 BP 138/88 02/21/18 08:00 Pulse Ox 94 L 02/21/18 08:00 Weight - Most Recent: 128 kg I&O - Last 24 hours: Intake & Output 02/20/18 02/21/18 02/21/18 22:59 06:59 14:59 Intake Total 1144 30 302 Output Total 400 720 Balance 744 -690 302 Lab Results - Last 24 hrs: Laboratory Results - last 24 hr 02/21/18 02/21/18 Range/Units 06:00 06:00 WBC 11.52 H (4.0-11.0) K/uL RBC 4.50 (4.50-5.90) M/uL Hgb 14.5 (13.0-17.0) g/dL Hct 42.4 (38.0-50.0) % MCV 94.2 (80.0-98.0) fL MCH 32.2 H (27.0-32.0) pg MCHC 34.2 (31.0-37.0) g/dL RDW Std Deviation 48.0 (28.0-62.0) fl RDW Coeff of Valentin 14 (11.0-15.0) % Plt Count 160 (150-400) K/uL MPV 8.80 (7.40-12.00) fL Neut % (Auto) 77.0 (48.0-80.0) % Lymph % (Auto) 16.0 (16.0-40.0) % [place] % (Auto) 6.6 (0.0-15.0) % Eos % (Auto) 0.3 (0.0-7.0) % Baso % (Auto) 0.1 (0.0-1.5) % Neut # (Auto) 8.9 H (1.4-5.7) K/uL Lymph # (Auto) 1.8 (0.6-2.4) K/uL [place] # (Auto) 0.8 (0.0-0.8) K/uL Eos # (Auto) 0.0 (0.0-0.7) K/uL Baso # (Auto) 0.0 (0.0-0.1) K/uL Nucleated RBC % 0.0 /100WBC Nucleated RBCs # 0 K/uL Sodium 139 (136-148) mmol/L Potassium 3.8 (3.5-5.1) mmol/L Chloride 105 (98-107) mmol/L Carbon Dioxide 23.4 (21.0-32.0) mmol/L BUN 15 (7.0-18.0) mg/dL Creatinine 0.9 (0.8-1.3) mg/dL Est Cr Clr Drug Dosing 119.97 mL/min Estimated GFR (MDRD) > 60.0 ml/min Glucose 104 (74-106) mg/dL Calcium 8.8 (8.5-10.1) mg/dL Magnesium 2.2 H (1.5-2.0) mg/dL Total Bilirubin 0.9 (0.2-1.0) mg/dL AST 46 H (15-37) IU/L ALT 137 H (14-63) IU/L Alkaline Phosphatase 61 (46-116) U/L Total Protein 6.7 (6.4-8.2) g/dL Albumin 3.0 L (3.4-5.0) g/dL Globulin 3.7 H (2.0-3.5) g/dL Albumin/Globulin Ratio 0.8 L (1.3-2.8) Med Orders - Current: Current Medications Folic Acid (Folic Acid) 1 mg SUBCUT DAILY [facility] Last Admin: 02/21/18 08:13 Dose: 1 mg Hydromorphone HCl (Dilaudid) 2 mg IVPUSH Q4H PRN PRN Reason: Abdominal Pain Last Admin: 02/21/18 03:38 Dose: 2 mg Ciprofloxacin/Dextrose 400 mg/ (Premix) 200 mls @ 200 mls/hr IV Q12H [facility] Last Admin: 02/21/18 08:12 Dose: 200 mls/hr Lactated Ringer's (Ringers, Lactated) 1,000 mls @ 150 mls/hr IV ASDIRECTED [facility] Last Admin: 02/21/18 03:35 Dose: 150 mls/hr Thiamine HCl 100 mg/ Sodium (Chloride) 51 mls @ 102 mls/hr IV DAILY [facility] Last Admin: 02/21/18 09:33 Dose: 102 mls/hr Metronidazole 500 mg/ Premix 100 mls @ 100 mls/hr IV QID [facility] Last Admin: 02/21/18 06:00 Dose: 100 mls/hr Lorazepam (Ativan) 0 mg IVPUSH Q4H PRN; Protocol PRN Reason: CIWAA Nicotine (Habitrol) 21 mg TRDERM DAILY [facility] Last Admin: 02/21/18 08:12 Dose: 21 mg Ondansetron HCl (Zofran) 4 mg IVPUSH Q4H PRN PRN Reason: Nausea Last Admin: 02/21/18 08:14 Dose: 4 mg Discontinued Medications Enoxaparin Sodium (Lovenox) 40 mg SUBCUT Q24H [facility] Last Admin: 02/20/18 09:30 Dose: Not Given Levofloxacin/Dextrose 500 mg/ (Premix) 100 mls @ 100 mls/hr IV ONETIME ONE Stop: 02/20/18 08:40 Last Admin: 02/20/18 07:50 Dose: Not Given Metronidazole 500 mg/ Premix 100 mls @ 100 mls/hr IV ONETIME ONE Stop: 02/20/18 08:40 Last Admin: 02/20/18 07:55 Dose: Not Given Sodium Chloride (Normal Saline) 1,000 mls @ 125 mls/hr IV STAT [facility] Last Admin: 02/20/18 08:03 Dose: 125 mls/hr Sodium Chloride (Normal Saline) 1,000 mls @ 125 mls/hr IV STAT [facility] Ciprofloxacin/Dextrose 400 mg/ (Premix) 200 mls @ 200 mls/hr IV Q12H [facility] Last Admin: 02/20/18 08:04 Dose: 200 mls/hr Metronidazole 500 mg/ Premix 100 mls @ 100 mls/hr IV QID [facility] Metronidazole 500 mg/ Premix 100 mls @ 100 mls/hr IV QID [facility] Last Admin: 02/20/18 12:33 Dose: Not Given Ketorolac Tromethamine (Toradol) 30 mg IVPUSH ONETIME ONE Stop: 02/20/18 07:16 Last Admin: 02/20/18 07:23 Dose: 30 mg Morphine Sulfate (Morphine) 2 mg IVPUSH ONETIME ONE Stop: 02/20/18 07:42 Last Admin: 02/20/18 08:03 Dose: 2 mg Morphine Sulfate (Morphine) 3 mg IVPUSH Q2H PRN PRN Reason: Pain (severe 7-10) Last Admin: 02/20/18 17:40 Dose: 3 mg - Exam General: Reports: Alert, Cooperative, No Acute Distress Neck: Reports: Supple Lungs: Reports: Clear to Auscultation, Normal Respiratory Effort Cardiovascular: Reports: Regular Rate, Regular Rhythm GI/Abdominal Exam: Normal Bowel Sounds, Soft, Tender (RLQ and lower mid abdomen , much improved from yesterday.). No: Distended, Rigid, Rebound Back Exam: Reports: Normal Inspection, Full Range of Motion Extremities: Normal Inspection, Normal Range of Motion, Non-Tender, No Pedal Edema, Normal Capillary Refill Neurological: Reports: No New Focal Deficit Psy/Mental Status: Reports: Alert, Anxious, Agitated
== END 2018-02-21 12:30 | disposition home or self-care (01) | DRG 392 ==
LOC: MW.ED 06:23 → MW.MS 07:47
PROVIDERS: ADMIT Internal Medicine; ATTEND Internal Medicine
DX: K57.32 Diverticulitis of large intestine without perforation or abscess without bleeding (principal); K76.0 Fatty (change of) liver, not elsewhere classified; F10.10 Alcohol abuse, uncomplicated; F17.200 Nicotine dependence, unspecified, uncomplicated
CPT/HCPCS: 36415; 74176; 74176-26; 80053; 81001; 83735; 85025; 96365; 96375; 99285-25; A9270-GY; J0744; J1170; J1885; J2270; J2405; J3411; J7040; J7050; J7120